=== PATIENT | female | born 1955 | race Caucasian/White ===

== ENCOUNTER 2023-11-05 12:51 | Inpatient (IN) | payer MEDICARE ==
[~2023-11-05] VITALS: Ht 177.8 cm; Wt 55.5 kg
[~2023-11-05 12:51] MED LIST: DOCU100C40 PO; FLUO-81 PO; GABA300C PO; OXYB-58 PO; TEMA7.5C2 PO; TRAM50TA2 PO
[2023-11-05 14:34] LABS: BASOPHILS % (AUTO) 0.2 % (0-1); EOSINOPHILS # (AUTO) 0.1 X10'3 (0-0.9); EOSINOPHILS % (AUTO) 0.8 % (0-6); HEMATOCRIT 34.1 % (35.0-45.0); LYMPHOCYTES # (AUTO) 1.3 X10'3 (1.1-4.8); LYMPHOCYTES % (AUTO) 10.9 % (21-51); MEAN CORPUSCULAR HEMOGLOBIN 29.9 PG (27.0-31.0); MEAN CORPUSCULAR HGB CONC 32.3 g/dL (33.0-36.5); MEAN CORPUSCULAR VOLUME 92.4 FL (78-98); MONOCYTES # (AUTO) 0.7 X10'3 (0-0.9); MONOCYTES % (AUTO) 5.6 % (2-12); NEUTROPHILS # (AUTO) 9.8 X10'3 (1.8-7.7); NEUTROPHILS % (AUTO) 82.5 % (42-75); PLATELET COUNT 389 X10'3 (140-440); RED BLOOD COUNT 3.69 X10'6 (4.20-5.60); RED CELL DISTRIBUTION WIDTH 13.7 % (11.5-14.5); WHITE BLOOD COUNT 11.8 X10'3 (4.5-11.0)
[2023-11-05 15:05] LABS: ALANINE AMINOTRANSFERASE 19 U/L (12-78); ALBUMIN/GLOBULIN RATIO 0.6 (1.1-1.5); ALKALINE PHOSPHATASE 119 IU/L (46-116); ANION GAP 10 (8-16); ASPARTATE AMINO TRANSFERASE 13 U/L (10-37); BILIRUBIN,TOTAL 0.7 MG/DL (0.1-1.0); BLOOD UREA NITROGEN 7 MG/DL (7-18); BUN/CREATININE RATIO 9.7 (10.0-20.0); CALCIUM 8.9 MG/DL (8.5-10.1); CHLORIDE 93 MMOL/L (99-107); CREATININE 0.72 MG/DL (0.40-0.90); GLUCOSE 102 MG/DL (70-104); LIPASE 13 U/L (16-77); SODIUM 129 MMOL/L (135-145); TOTAL PROTEIN 7.8 G/DL (6.4-8.2); eCRCL 67 ML/MIN; eGFR 81 ML/MIN
[2023-11-05] MEDS: potassium Cl 20 mEq SR tablet PO ONE (15:22)
[2023-11-05] MEDS: normal saline 1000ml 1,000 ML IV ONE (15:26)
[2023-11-05 15:48] LABS: UA COLLECTION TYPE STRAIGHT CATH
[2023-11-05 15:55] LABS: PH,URINE 7.5 (4.8-8.0); PROTEIN,URINE 100 mg/dl (Neg)
[2023-11-05 15:56] LABS: BILIRUBIN,URINE NEGATIVE (Neg); CLARITY,URINE CLOUDY (Clear); COLOR,URINE YELLOW (Yellow); GLUCOSE, URINE Negative (Neg); KETONES,URINE Negative (Neg); LEUKOCYTE ESTERASE ,URINE LARGE (Neg); NITRITES, URINE NEGATIVE (Neg); OCCULT BLOOD,URINE LARGE (Neg); UROBILINOGEN,URINE 0.2 E.U/dL (0.2-1.0)
[2023-11-05 15:59] LABS: SQUAMOUS EPITHELIAL CELL,UR NONE SEEN /LPF (FEW); WBC,URINE TNTC /HPF (0-4)
[2023-11-05 16:00] LABS: BACTERIA,URINE 4+ /HPF (Neg)
[2023-11-05] MEDS: CefTRIAXone 2gm/D5W 50ml BAG 50 ML IV ONE (16:10)
[2023-11-05] MEDS ORDERED: NITR100C6 PO (16:19)
[2023-11-05] MEDS ORDERED: POLY119P2 PO (16:19)
[2023-11-05] MEDS ORDERED: potassium Cl 40MEQ/1/2NS 520ml 520 ML IV PRN (17:20)
[2023-11-05] MEDS ORDERED: HYDROcodone/acetaminophen 5mg/325mg tablet PO PRN (17:20)
[2023-11-05] MEDS ORDERED: mag hydrox/Alum hydrox/simeth 30ml oral suspension PO PRN (17:20)
[2023-11-05] MEDS ORDERED: magnesium 4gm in 100ml NS 100 ML IV PRN (17:20)
[2023-11-05] MEDS ORDERED: magnesium 2GM in 50ml NS 50 ML IV PRN (17:20)
[2023-11-05] MEDS ORDERED: acetaminophen 325mg tablet PO PRN ×2 (17:20)
[2023-11-05] MEDS ORDERED: potassium Cl 20 mEq SR tablet PO PRN (17:20)
[2023-11-05] MEDS ORDERED: bisacodyl 10mg suppository rectal RC PRN (17:20)
[2023-11-05] MEDS: normal saline 1000ml 1,000 ML IV SCH (17:52)
[2023-11-05 17:56] LABS: ETHANOL < 10 MG/DL (<10)
[2023-11-05] MEDS ORDERED: MULT-1085 PO (19:26)
[2023-11-05] MEDS ORDERED: PALI1.5T2 PO (19:26)
[2023-11-05] MEDS ORDERED: CYAN500T71 PO (19:26)
[2023-11-05] MEDS ORDERED: DULO-31 PO ×2 (19:26)
[2023-11-05] MEDS ORDERED: GABA600T13 PO (19:26)
[2023-11-05] MEDS ORDERED: lactulose 20gm/30ml cup PO PRN (20:00)
[2023-11-05] MEDS ORDERED: lactulose 20gm/30ml cup PO SCH (20:00)
[2023-11-05] MEDS: docusate sod 100mg capsule PO SCH (20:06)
[2023-11-05] MEDS: K and/or MAG REPLACEMENT MC SCH (20:08)
[2023-11-05] MEDS: potassium Cl 20 mEq SR tablet PO PRN (20:08)
[2023-11-05 21:40] VITALS: BP 105/74; PULSE 94; RESP 16; TEMP 99.6; O2SAT 96
[2023-11-05 21:45] VITALS: RESP 16
[2023-11-06] MEDS: heparin, porcine 5000 units/ml vial SQ SCH (00:43)
[2023-11-06 06:00] VITALS: BP 98/69; PULSE 91; RESP 14; TEMP 98.3; O2SAT 98
[2023-11-06 06:29] LABS: BASOPHILS # (AUTO) 0.1 X10'3 (0-0.2); BASOPHILS % (AUTO) 0.8 % (0-1); EOSINOPHILS # (AUTO) 0.1 X10'3 (0-0.9); EOSINOPHILS % (AUTO) 0.7 % (0-6); HEMOGLOBIN 9.5 g/dl (12.0-16.0); LYMPHOCYTES % (AUTO) 7.8 % (21-51); MEAN CORPUSCULAR HEMOGLOBIN 30.3 PG (27.0-31.0); MEAN CORPUSCULAR HGB CONC 32.7 g/dL (33.0-36.5); MEAN CORPUSCULAR VOLUME 92.7 FL (78-98); MEAN PLATELET VOLUME 8.3 FL (7.4-10.4); MONOCYTES # (AUTO) 0.9 X10'3 (0-0.9); MONOCYTES % (AUTO) 7.6 % (2-12); NEUTROPHILS # (AUTO) 10.1 X10'3 (1.8-7.7); NEUTROPHILS % (AUTO) 83.1 % (42-75); PLATELET COUNT 305 X10'3 (140-440); RED BLOOD COUNT 3.12 X10'6 (4.20-5.60); RED CELL DISTRIBUTION WIDTH 13.7 % (11.5-14.5); WHITE BLOOD COUNT 12.2 X10'3 (4.5-11.0)
[2023-11-06 06:33] LABS: ANION GAP 6 (8-16); BLOOD UREA NITROGEN 5 MG/DL (7-18); BUN/CREATININE RATIO 8.8 (10.0-20.0); CHLORIDE 102 MMOL/L (99-107); CREATININE 0.57 MG/DL (0.40-0.90); GLUCOSE 114 MG/DL (70-104); POTASSIUM 4.5 MMOL/L (3.5-5.1); SODIUM 132 MMOL/L (135-145); TOTAL CARBON DIOXIDE 24.5 MMOL/L (24-32); eCRCL 85 ML/MIN
[2023-11-06 06:34] LABS: ALANINE AMINOTRANSFERASE 8 U/L (12-78); ALBUMIN 2.3 G/DL (3.4-5.0); ALBUMIN/GLOBULIN RATIO 0.6 (1.1-1.5); ALKALINE PHOSPHATASE 92 IU/L (46-116); ASPARTATE AMINO TRANSFERASE 8 U/L (10-37); BILIRUBIN,TOTAL 0.5 MG/DL (0.1-1.0); CALCIUM 8.6 MG/DL (8.5-10.1); TOTAL PROTEIN 6.4 G/DL (6.4-8.2); eGFR > 90 ML/MIN
[2023-11-06 08:00] VITALS: RESP 14; O2SAT 98
[2023-11-06] MEDS: ondansetron/PF 4mg/2ml inj IV PRN (09:08)
[2023-11-06] MEDS: CefTRIAXone/D5W-Rocephin 1gm 50 ML IV SCH (09:08)
[2023-11-06 09:26] LABS: RED BLOOD COUNT 3.28 X10'6 (4.20-5.60); RETICULOCYTE % (AUTO) 1.4 % (0.5-1.5)
[2023-11-06 09:58] LABS: % IRON SATURATION 7 % (11-46); IRON 12 UG/DL (49-151); TOTAL IRON BINDING CAPACITY 183 UG/DL (259-388)
[2023-11-06 10:00] LABS: FERRITIN 376 NG/ML (8-252)
[2023-11-06] MEDS: HYDROcodone/acetaminophen 10/325mg tab PO PRN (12:07)
[2023-11-06 13:10] LABS: OCCULT BLOOD STOOL NEGATIVE (Neg)
[2023-11-06 18:00] VITALS: BP 134/87; PULSE 80; RESP 14; TEMP 97.9; O2SAT 98
[2023-11-06] MEDS ORDERED: non-formulary drug (Gabapentin 1 TAB) PO SCH (20:00)
[2023-11-06 20:01] VITALS: RESP 14; O2SAT 98
[2023-11-06] MEDS: duloxetine 30mg CAPSULE.DR PO SCH (20:08)
[2023-11-06] MEDS: gabapentin 300mg capsule PO SCH (20:08)
[2023-11-06] MEDS: docusate sod 100mg capsule PO SCH (20:09)
[2023-11-06] MEDS: paliperidone 1.5mg ER tablet PO SCH (20:09)
[2023-11-06] MEDS: traMADol 50MG tablet PO PRN ×2 (20:11→21:02)
[2023-11-06] MEDS ORDERED: TEMAZEPAM 7.5MG PO SCH (21:00)
[2023-11-06 22:00] VITALS: BP 136/88; PULSE 79; RESP 14; TEMP 99.3; O2SAT 99
[2023-11-07 06:10] LABS: BASOPHILS % (AUTO) 0.4 % (0-1); EOSINOPHILS # (AUTO) 0.2 X10'3 (0-0.9); EOSINOPHILS % (AUTO) 2.9 % (0-6); HEMATOCRIT 28.7 % (35.0-45.0); HEMOGLOBIN 9.3 g/dl (12.0-16.0); LYMPHOCYTES % (AUTO) 13.3 % (21-51); MEAN CORPUSCULAR HEMOGLOBIN 29.7 PG (27.0-31.0); MEAN CORPUSCULAR HGB CONC 32.4 g/dL (33.0-36.5); MEAN CORPUSCULAR VOLUME 91.7 FL (78-98); MEAN PLATELET VOLUME 8.2 FL (7.4-10.4); MONOCYTES # (AUTO) 0.6 X10'3 (0-0.9); MONOCYTES % (AUTO) 8.7 % (2-12); NEUTROPHILS # (AUTO) 5.5 X10'3 (1.8-7.7); NEUTROPHILS % (AUTO) 74.7 % (42-75); PLATELET COUNT 295 X10'3 (140-440); RED BLOOD COUNT 3.14 X10'6 (4.20-5.60); RED CELL DISTRIBUTION WIDTH 13.5 % (11.5-14.5); WHITE BLOOD COUNT 7.4 X10'3 (4.5-11.0)
[2023-11-07 06:19] LABS: ALANINE AMINOTRANSFERASE 13 U/L (12-78); ALBUMIN 2.2 G/DL (3.4-5.0); ALBUMIN/GLOBULIN RATIO 0.6 (1.1-1.5); ALKALINE PHOSPHATASE 85 IU/L (46-116); ANION GAP 7 (8-16); ASPARTATE AMINO TRANSFERASE 11 U/L (10-37); BILIRUBIN,TOTAL 0.4 MG/DL (0.1-1.0); BLOOD UREA NITROGEN 5 MG/DL (7-18); BUN/CREATININE RATIO 8.5 (10.0-20.0); CALCIUM 8.2 MG/DL (8.5-10.1); CHLORIDE 104 MMOL/L (99-107); CREATININE 0.59 MG/DL (0.40-0.90); GLUCOSE 92 MG/DL (70-104); MAGNESIUM 1.8 MG/DL (1.5-2.4); POTASSIUM 4.1 MMOL/L (3.5-5.1); SODIUM 138 MMOL/L (135-145); TOTAL CARBON DIOXIDE 27.1 MMOL/L (24-32); eCRCL 82 ML/MIN; eGFR > 90 ML/MIN
[2023-11-07 06:47] VITALS: BP 94/66; PULSE 77; RESP 18; TEMP 97.7; O2SAT 92
[2023-11-07] MEDS: duloxetine 30mg CAPSULE.DR PO SCH (07:51)
[2023-11-07] MEDS: multivitamins, therapeutics tablet PO SCH (07:52)
[2023-11-07] MEDS: cyanocobalamin 500mcg tablet PO SCH (07:52)
[2023-11-07] MEDS: oxybutynin 5mg tablet PO SCH (07:52)
[2023-11-07] MEDS ORDERED: FLUOXETINE HCL PO SCH (08:00)
[2023-11-07] MEDS: iron sucrose complex injection 200 MG in normal saline 100ml IV soln 100 ML IV SCH (08:48)
[2023-11-07 08:54] VITALS: RESP 18; O2SAT 92
[2023-11-07 10:49] VITALS: BP 101/69; PULSE 74; RESP 16; TEMP 98.2; O2SAT 95
[2023-11-07 18:00] VITALS: BP 96/53; PULSE 97; RESP 14; TEMP 98.4; O2SAT 98
[2023-11-07 20:00] VITALS: RESP 18; O2SAT 98
[2023-11-07] MEDS: thiamine 100mg tablet PO SCH (20:03)
[2023-11-07] MEDS: MEROPENEM 1GM/NS 100ML IVPB 100 ML IV SCH (20:07)
[2023-11-07 22:00] VITALS: BP 94/59; PULSE 97; RESP 18; TEMP 98.8; O2SAT 98
[2023-11-08 06:26] VITALS: BP 102/67; PULSE 91; RESP 16; TEMP 98.4; O2SAT 96
[2023-11-08 07:55] VITALS: RESP 16; O2SAT 96
[2023-11-08] MEDS: pantoprazole 40mg Tablet.DR PO SCH (08:34)
[2023-11-08 09:24] LABS: BASOPHILS % (AUTO) 0.2 % (0-1); EOSINOPHILS # (AUTO) 0.1 X10'3 (0-0.9); HEMATOCRIT 29.2 % (35.0-45.0); HEMOGLOBIN 9.3 g/dl (12.0-16.0); LYMPHOCYTES # (AUTO) 0.9 X10'3 (1.1-4.8); LYMPHOCYTES % (AUTO) 8.3 % (21-51); MEAN CORPUSCULAR HEMOGLOBIN 29.6 PG (27.0-31.0); MEAN CORPUSCULAR HGB CONC 31.8 g/dL (33.0-36.5); MEAN CORPUSCULAR VOLUME 93.1 FL (78-98); MEAN PLATELET VOLUME 8.2 FL (7.4-10.4); MONOCYTES # (AUTO) 0.9 X10'3 (0-0.9); MONOCYTES % (AUTO) 8.1 % (2-12); NEUTROPHILS # (AUTO) 9.2 X10'3 (1.8-7.7); NEUTROPHILS % (AUTO) 82.4 % (42-75); PLATELET COUNT 297 X10'3 (140-440); RED BLOOD COUNT 3.14 X10'6 (4.20-5.60); RED CELL DISTRIBUTION WIDTH 13.6 % (11.5-14.5); WHITE BLOOD COUNT 11.2 X10'3 (4.5-11.0)
[2023-11-08 09:47] LABS: ALANINE AMINOTRANSFERASE 13 U/L (12-78); ALBUMIN 2.1 G/DL (3.4-5.0); ALBUMIN/GLOBULIN RATIO 0.5 (1.1-1.5); ALKALINE PHOSPHATASE 102 IU/L (46-116); ANION GAP 7 (8-16); ASPARTATE AMINO TRANSFERASE 16 U/L (10-37); BILIRUBIN,TOTAL 0.3 MG/DL (0.1-1.0); BLOOD UREA NITROGEN 5 MG/DL (7-18); CALCIUM 8.2 MG/DL (8.5-10.1); CHLORIDE 104 MMOL/L (99-107); CREATININE 0.71 MG/DL (0.40-0.90); GLUCOSE 101 MG/DL (70-104); POTASSIUM 3.9 MMOL/L (3.5-5.1); SODIUM 135 MMOL/L (135-145); TOTAL CARBON DIOXIDE 23.8 MMOL/L (24-32); TOTAL PROTEIN 6.4 G/DL (6.4-8.2); eCRCL 68 ML/MIN; eGFR 82 ML/MIN
[2023-11-08 10:59] VITALS: BP 124/82; PULSE 87; RESP 16; TEMP 97.4; O2SAT 96
== END 2023-11-08 17:50 | DRG 871 ==
LOC: ER 12:52 → ED HOLD 17:23 → SUR 3N 21:39
PROVIDERS: ADMIT Family Medicine; ATTEND Family Medicine
PROC: 05HC33Z Insertion of Infusion Device into Left Basilic Vein, Percutaneous Approach (ICD-10-PCS; principal; 2023-11-08)
PROC: B54NZZA Ultrasonography of Left Upper Extremity Veins, Guidance (ICD-10-PCS; 2023-11-08)
DX: A41.51 Sepsis due to Escherichia coli [E. coli] (principal); E43 Unspecified severe protein-calorie malnutrition; N39.0 Urinary tract infection, site not specified; E87.1 Hypo-osmolality and hyponatremia; Z68.1 Body mass index [BMI] 19.9 or less, adult; Z16.12 Extended spectrum beta lactamase (ESBL) resistance; E87.6 Hypokalemia; L89.322 Pressure ulcer of left buttock, stage 2; R27.0 Ataxia, unspecified; L89.312 Pressure ulcer of right buttock, stage 2; R62.7 Adult failure to thrive; F10.10 Alcohol abuse, uncomplicated; B96.20 Unspecified Escherichia coli [E. coli] as the cause of diseases classified elsewhere; K59.00 Constipation, unspecified; D63.8 Anemia in other chronic diseases classified elsewhere; D50.9 Iron deficiency anemia, unspecified; G62.9 Polyneuropathy, unspecified; Y90.9 Presence of alcohol in blood, level not specified; Z82.3 Family history of stroke; Z79.899 Other long term (current) drug therapy; Z87.440 Personal history of urinary (tract) infections
CPT/HCPCS: 36410; 36415; 74018; 76937; 80053; 80320; 81001; 82272; 82728; 83540; 83550; 83690; 83735; 83930; 85025; 85045; 87077; 87081; 87088; 87186; 97110; 97161; 97530; 99285; A6258; C1751; C1758; G0378; J0696; J1644; J1756; J2185; J2405; J3490; J7030

== ENCOUNTER 2024-02-02 17:32 | Emergency (ER) | payer MEDICARE ==
[~2024-02-02] VITALS: Ht 177.8 cm; Wt 53.2 kg
[~2024-02-02 17:32] MED LIST changes: +CYAN500T71 PO; +DULO-31 PO; +GABA600T13 PO; +MULT-1085 PO; +PALI1.5T2 PO
[2024-02-02 18:36] LABS: BASOPHILS # (AUTO) 0.1 X10'3 (0-0.2); BASOPHILS % (AUTO) 0.8 % (0-1); EOSINOPHILS # (AUTO) 0.1 X10'3 (0-0.9); EOSINOPHILS % (AUTO) 2.1 % (0-6); HEMATOCRIT 37.7 % (35.0-45.0); HEMOGLOBIN 12.3 g/dl (12.0-16.0); LYMPHOCYTES # (AUTO) 1.6 X10'3 (1.1-4.8); LYMPHOCYTES % (AUTO) 23.8 % (21-51); MEAN CORPUSCULAR HEMOGLOBIN 29.4 PG (27.0-31.0); MEAN CORPUSCULAR HGB CONC 32.6 g/dL (33.0-36.5); MEAN CORPUSCULAR VOLUME 90.3 FL (78-98); MEAN PLATELET VOLUME 8.6 FL (7.4-10.4); MONOCYTES # (AUTO) 0.5 X10'3 (0-0.9); MONOCYTES % (AUTO) 7.7 % (2-12); NEUTROPHILS # (AUTO) 4.3 X10'3 (1.8-7.7); NEUTROPHILS % (AUTO) 65.6 % (42-75); PLATELET COUNT 291 X10'3 (140-440); RED BLOOD COUNT 4.17 X10'6 (4.20-5.60); WHITE BLOOD COUNT 6.5 X10'3 (4.5-11.0)
[2024-02-02 18:49] LABS: ALBUMIN 3.2 G/DL (3.4-5.0); ANION GAP 7 (8-16); BLOOD UREA NITROGEN 4 MG/DL (7-18); BUN/CREATININE RATIO 5.4 (10.0-20.0); CALCIUM 9.1 MG/DL (8.5-10.1); CHLORIDE 99 MMOL/L (99-107); CREATININE 0.74 MG/DL (0.40-0.90); GLUCOSE 98 MG/DL (70-104); POTASSIUM 3.2 MMOL/L (3.5-5.1); SODIUM 135 MMOL/L (135-145); TOTAL CARBON DIOXIDE 29.5 MMOL/L (24-32); eCRCL 63 ML/MIN; eGFR 79 ML/MIN
[2024-02-02 19:10] LABS: BILIRUBIN,URINE NEGATIVE (Neg); CLARITY,URINE CLOUDY (Clear); COLOR,URINE YELLOW (Yellow); GLUCOSE, URINE NEGATIVE (Neg); KETONES,URINE NEGATIVE (Neg); LEUKOCYTE ESTERASE ,URINE LARGE (Neg); NITRITES, URINE POSITIVE (Neg); OCCULT BLOOD,URINE TRACE-INTACT (Neg); PROTEIN,URINE NEGATIVE (Neg)
[2024-02-02 19:23] LABS: UA COLLECTION TYPE STRAIGHT CATH
[2024-02-02 19:25] LABS: BACTERIA,URINE 4+ /HPF (Neg); RBC,URINE 0-2 /HPF (0-2); SQUAMOUS EPITHELIAL CELL,UR FEW /LPF (FEW); WBC,URINE TNTC /HPF (0-4)
[2024-02-02] MEDS: FOSFOMYCIN TROMETHAMINE 3 GM PACKET PO ONE (21:01)
[2024-02-02 21:48] VITALS: BP 148/96; PULSE 67; RESP 17; TEMP 98.3; O2SAT 97
== END 2024-02-02 21:53 | disposition home or self-care (01) ==
LOC: ER 17:33
DX: N39.0 Urinary tract infection, site not specified (principal); R41.82 Altered mental status, unspecified; G62.9 Polyneuropathy, unspecified; R44.0 Auditory hallucinations; Z79.899 Other long term (current) drug therapy
CPT/HCPCS: 36415; 80048; 81001; 83605; 84145; 85025; 87040; 87088; 99284; C1758; 87077; 87186

== ENCOUNTER 2024-03-13 21:52 | Emergency (ER) | payer MEDICARE ==
[~2024-03-13] VITALS: Ht 177.8 cm; Wt 67.0 kg
[2024-03-13 22:38] LABS: BASOPHILS % (AUTO) 0.6 % (0-1); EOSINOPHILS # (AUTO) 0.3 X10'3 (0-0.9); HEMATOCRIT 31.4 % (35.0-45.0); HEMOGLOBIN 10.6 g/dl (12.0-16.0); LYMPHOCYTES # (AUTO) 1.6 X10'3 (1.1-4.8); LYMPHOCYTES % (AUTO) 23.8 % (21-51); MEAN CORPUSCULAR HGB CONC 33.7 g/dL (33.0-36.5); MEAN CORPUSCULAR VOLUME 92.1 FL (78-98); MONOCYTES # (AUTO) 0.5 X10'3 (0-0.9); MONOCYTES % (AUTO) 8.1 % (2-12); NEUTROPHILS # (AUTO) 4.3 X10'3 (1.8-7.7); NEUTROPHILS % (AUTO) 63.5 % (42-75); PLATELET COUNT 271 X10'3 (140-440); RED BLOOD COUNT 3.41 X10'6 (4.20-5.60); RED CELL DISTRIBUTION WIDTH 15.7 % (11.5-14.5); WHITE BLOOD COUNT 6.8 X10'3 (4.5-11.0)
[2024-03-13 22:48] LABS: ALANINE AMINOTRANSFERASE 23 U/L (12-78); ALBUMIN 3.2 G/DL (3.4-5.0); ALKALINE PHOSPHATASE 130 IU/L (46-116); ANION GAP 6 (8-16); ASPARTATE AMINO TRANSFERASE 35 U/L (10-37); BILIRUBIN,TOTAL 0.5 MG/DL (0.1-1.0); BLOOD UREA NITROGEN 9 MG/DL (7-18); BUN/CREATININE RATIO 15.8 (10.0-20.0); CALCIUM 9.1 MG/DL (8.5-10.1); CHLORIDE 98 MMOL/L (99-107); CREATININE 0.57 MG/DL (0.40-0.90); GLUCOSE 100 MG/DL (70-104); POTASSIUM 3.8 MMOL/L (3.5-5.1); SODIUM 132 MMOL/L (135-145); TOTAL CARBON DIOXIDE 28.3 MMOL/L (24-32); TOTAL PROTEIN 6.5 G/DL (6.4-8.2); eCRCL 103 ML/MIN; eGFR > 90 ML/MIN
[2024-03-14 03:27] VITALS: BP 141/89; PULSE 62; RESP 16; TEMP 98.3; O2SAT 97
== END 2024-03-14 03:45 | disposition home or self-care (01) ==
LOC: ER 21:52
DX: K62.5 Hemorrhage of anus and rectum (principal); Z79.899 Other long term (current) drug therapy
CPT/HCPCS: 36415; 80053; 85025; 99285; A6213